=== PATIENT | male | born 1995 | race Caucasian/White ===

== ENCOUNTER 2018-04-02 12:36 | Outpatient (CLI) | END 2018-04-02 12:37 | disposition home or self-care (01) | LOC: LAB 12:36 | PROVIDERS: ATTEND Nurse Practitioner Family | DX: Z00.00 Encounter for general adult medical examination without abnormal findings (principal); R07.9 Chest pain, unspecified | CPT/HCPCS: 36415; 80053; 80061; 84443; 85025; 93005; 93010 ==